=== PATIENT | female | born 1975 | race Caucasian/White ===

== ENCOUNTER 2023-04-03 13:14 | Emergency (ER) | payer OTHER, BC, SELFPAY ==
[2023-04-03 13:19] VITALS: BP 156/94; PULSE 76; RESP 16; TEMP 36.4; O2SAT 99; BMI 22.9
--- NOTE | 2023-04-03 13:28 | CRLHL7_ITS ---
For Patients: As a result of the Cures Act, medical imaging exams and procedure reports are released immediately into your electronic medical record. You may view this report before your referring provider. If you have questions, please contact your health care provider. Indication: Injury Technique: Two views Comparison: None Findings/Impression: Bones: Alignment is normal. No fractures or bone lesions. Joint spaces: Minimal knee osteophytes consistent with osteoarthritis with small knee effusion. Soft tissues: Unremarkable. Dictated by Benja Pena MD @ 04/03/2023 2:14:21 PM (Electronically Signed)
--- NOTE | 2023-04-03 13:34 | ED_ITS ---
HPI - General Adult General Chief complaint: Extremity Pain/Injury, Lower Stated complaint: right knee pain Time Seen by Provider: 04/03/23 13:20 History of Present Illness HPI narrative: Patient is 47 year white female who has got a history of injury knee about 6 days ago when she twisted her knee at work, seemed to have her kneecap come out and she pushed it back in. She is flexed and extended her knee and has had some pain into the kneecap still and is little bits swollen. She presents to the ED for evaluation Related Data Home Medications Medication Instructions Recorded Confirmed No Known Home Medications 04/03/23 04/03/23 Allergies Allergy/AdvReac Type Severity Reaction Status Date / Time Penicillins Allergy Intermediate Verified 04/03/23 13:23 Review of Systems Status of ROS: Reports: 6 or more systems reviewed and unremarkable except as noted in History and below PFSH PFS Social History Smoking Status: Current every day smoker How often do you have a drink containing alcohol: monthly or less AUDIT-C Alcohol total score: 1 Non-prescribed substance use: denies use Exam Narrative: Exam Narrative: Objective: Patient's right knee shows no effusion No medial lateral joint line tenderness Negative anterior posterior drawer. Distal CMS intact Const: Vital Signs, click to edit/add: Vital Signs - 24 hr 04/03/23 13:19 Temperature 97.6 F Pulse Rate [Pulse Oximeter] 76 Respiratory Rate 16 Blood Pressure [Ri ght Upper Arm] 156/94 H Pulse Oximetry 99 Oxygen Delivery Me thod Room Air Course Vital Signs Vital signs: Initial Vital Signs Temperature 97.6 F 04/03/23 13:19 Temperature Source Temporal Artery Scan 04/03/23 13:19 Pulse Rate 76 04/03/23 13:19 Respiratory Rate 16 04/03/23 13:19 Blood Pressure 156/94 H 04/03/23 13:19 Blood Pressure Mean 114 H 04/03/23 13:19 Blood Pressure Position Supine 04/03/23 13:19 Pulse Oximetry 99 04/03/23 13:19 Oxygen Delivery Method Room Air 04/03/23 13:19 Vital Signs Temperature 97.6 F 04/03/23 13:19 Pulse Rate 76 04/03/23 13:19 Respiratory Rate 16 04/03/23 13:19 Blood Pressure 156/94 H 04/03/23 13:19 Pulse Oximetry 99 04/03/23 13:19 Oxygen Delivery Method Room Air 04/03/23 13:19 Temperature 97.6 F 04/03/23 13:19 Pulse Rate 76 04/03/23 13:19 Respiratory Rate 16 04/03/23 13:19 Blood Pressure 156/94 H 04/03/23 13:19 Pulse Oximetry 99 04/03/23 13:19 Oxygen Delivery Method Room Air 04/03/23 13:19 Medical Decision Making MDM Narrative Medical decision making narrative: 47 year white female who sprained her right knee with what sounds like patellar subluxation, with persistent mild knee swelling and pain 6 days later. Suspect this is more soft tissue inflammation and from her subluxation. Would recommend icing on a regular basis ibuprofen, will check at x-ray today if the x-ray is negative then follow up with Orthopedics in the next 3-5 days and consider next course of action. Will decide whether she needs to be off work for period of time be happy to write a note for that affect probably should do some crutch walking or limited weight-bearing as well. Patient declined crutches, also declined any time off work. Discharge Plan Discharge Clinical Impression: Patellar subluxation, Acute knee pain Patient Disposition: Home, Self-Care Condition: Stable Additional Instructions: Ambulate as able, Ade gonzalez recommended, orthopedic followup in 3-5 days. Please file a workers compensation claim to receive a claim number. Let them know that you have been referred to orthopedics. Once you have the number, please call [phone] to schedule a follow up appointment. Activity Level: Light activity Discharge Diet: Regular Prescriptions: No Action No Known Home Medications Stand Alone Forms: [employer] Info Instructions
== END 2023-04-03 14:02 | disposition home or self-care (01) ==
PROVIDERS: Emergency Provider Family Medicine
DX: S83.011A Lateral subluxation of right patella, initial encounter (principal)
CPT/HCPCS: 73560; 99283; 99284

== ENCOUNTER 2023-05-02 14:54 | Outpatient (CLI) | payer OTHER, BC, SELFPAY ==
--- NOTE | 2023-05-02 15:30 | MR_ITS ---
[address] [address] Phone:?[phone] Fax:?[phone] Referring Physician Information: Laney Irving [address] [facility] [address] Phone:?[phone] Fax:?[phone] Patient:Radha Alexander D.O.B:?1975 Sex:?Female Phone:? [facility] MRN:?[id number] Exam Date:?05/02/2023 EXAM: MRI of the RIGHT KNEE, without contrast CLINICAL HISTORY: Right knee pain. Workers compensation. Suspect patellar dislocation. COMPARISONS: Plain radiographs 04/03/2023. TECHNICAL: MR sequences of the right knee: sagittals: PD, PDFS coronals: PD, STIR axials: PD, T2 FS CONTRAST: None SEDATION: None FINDINGS: Bones: No fracture, bone marrow contusion, or other suspicious bone marrow signal abnormality. Patellofemoral joint: Cartilage: Intact. Retinacula: The medial and lateral retinacula are intact. Fat pads: Edema-like signal within the superolateral portion of the infrapatellar fat pad is associated with patellar tendon-lateral femoral condyle friction/patellar maltracking. The Insall Salvati index measures 1.16, which is within normal limits. The lateral trochlear inclination angle measures 19 degrees, which is within normal limits. The tibial tubercle to trochlear groove distance measures 1.0 cm, which is within normal limits. Knee joint: Effusion: Trace right knee joint effusion. Popliteal cyst: Small popliteal cyst. Intra-articular bodies: None. Posteromedial corner: The semimembranosus and pes anserine tendons are intact. Medial compartment: Medial meniscus: Free edge fraying of the body of the medial meniscus best seen on coronal series 7 image 16. Cartilage: 3 x 3 mm area of slight grade II chondromalacia over the weight- bearing portion of the medial femoral condyle best seen on coronal series 8 image 17. Lateral compartment: Lateral meniscus: 2.0 cm in length free edge and superiorly surfacing horizontal tear from the anterior horn through body of the lateral meniscus with probable reactive bone marrow edema within the adjacent portion of the lateral femoral condyle and fraying/mucoid degeneration of the anterior root of the lateral meniscus. Cartilage: Intact. Ligaments: Anterior cruciate ligament: Chronic complete tear. There is 1.1 cm of anterior translation of the tibia. Posterior cruciate ligament: Intact. Medial collateral ligament: Intact. Posterior oblique ligament: Intact. Fibular collateral ligament: Intact. Posterolateral corner: The distal biceps femoris tendon, iliotibial band, popliteus tendon, popliteus muscle, popliteofibular ligament, and arcuate ligament are intact. Extensor mechanism: Patellar tendon: Intact. Quadriceps tendon: Intact. IMPRESSION: 1. 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 1.1 cm of anterior translation of the tibia. 2. 2.0 cm in length free edge and superiorly surfacing horizontal tear from the anterior horn through body of the lateral meniscus and fraying/mucoid degeneration of the anterior root of the lateral meniscus. 3. Free edge fraying of the body of the medial meniscus. 4. 3 x 3 mm focus of slight grade II chondromalacia over the weight-bearing portion of the medial femoral condyle. 5. Edema-like signal within the superolateral portion of the infrapatellar fat pad is associated with patellar tendon-lateral femoral condyle friction/patellar maltracking. The Insall Salvati index, lateral trochlear inclination angle, and tibial tubercle to trochlear groove distance measurements are within normal limits. No evidence of recent transient lateral patellar dislocation injury. No medial retinaculum/medial patellofemoral ligament tear or intra-articular body. 6. Trace right knee joint effusion. Small popliteal cyst. RCB Electronically signed on 05/03/2023 6:55:00 AM by Jeremy Addison M.D.
== END 2023-05-02 14:55 | disposition home or self-care (01) ==
LOC: MRI 14:56
PROVIDERS: Visit Provider Physician Assistant
DX: M25.561 Pain in right knee (principal); S83.511A Sprain of anterior cruciate ligament of right knee, initial encounter; S83.281A Other tear of lateral meniscus, current injury, right knee, initial encounter; M22.41 Chondromalacia patellae, right knee; M25.461 Effusion, right knee; S83.003A Unspecified subluxation of unspecified patella, initial encounter
CPT/HCPCS: 73721